=== PATIENT | male | born 1985 | race Caucasian/White ===

== ENCOUNTER 2018-02-25 01:28 | Emergency (ER) | payer MEDICAID ==
[~2018-02-25] VITALS: Ht 188 cm; Wt 100.0 kg
[2018-02-25 01:49] VITALS: Ht 188 cm; Wt 100.0 kg
[2018-02-25 02:29] LABS: BASOPHILS 0.1 % (0-2); EOSINOPHILS 0.1 % (0-7); HEMATOCRIT 43.5 % (42.0-54.0); HEMOGLOBIN 15.1 g/dL (13.5-17.5); IMMATURE GRANULOCYTES 0.3 % (0-5); LYMPHOCYTES 7.1 % (15-50); MCH 29.3 pg (26.0-34.0); MCHC 34.7 g/dL (31.0-37.0); MCV 84.3 fL (80.0-100.0); MEAN PLATELET VOLUME 11.3 fL (7.4-10.4); MONOCYTES 8.4 % (2-11); RBC 5.16 10x6/uL (4.20-6.10); RDW 12.9 % (11.5-14.5); WBC 14.6 10x3/uL (4.8-10.8)
[2018-02-25 02:31] LABS: PLATELET COUNT 189 10x3/uL (130-400)
[2018-02-25 02:43] LABS: ALBUMIN 4.2 g/dL (3.4-5.0); ALKALINE PHOSPHATASE 69 U/L (46-116); ALT (SGPT) 24 U/L (10-68); BILIRUBIN - TOTAL 0.67 mg/dL (0.2-1.3); CALC OSMOLALITY 283 mosm/kg (275-300); CARBON DIOXIDE 27.8 mmol/L (21.0-32.0); CHLORIDE - SERUM 105 mmol/L (98-107); GLUCOSE 134 mg/dL (74-106); PROTEIN - SERUM 7.3 g/dL (6.4-8.2); SODIUM 142 mmol/L (136-145); UREA NITROGEN 11 mg/dL (7-18); eGFR NON AFRICAN AMERICAN > 90 mL/min (90-120)
[2018-02-25 02:44] LABS: POTASSIUM - SERUM 2.9 mmol/L (3.5-5.1)
[2018-02-25 02:56] LABS: APPEARANCE CLEAR (CLEAR); BILIRUBIN 1+ (NEGATIVE); COLOR DK YELLOW (YELLOW); GLUCOSE NEGATIVE (NEGATIVE); KETONE NEGATIVE (NEGATIVE); NITRITE NEGATIVE (NEGATIVE); PROTEIN NEGATIVE (NEGATIVE); UROBILINOGEN NORMAL (NORMAL)
[2018-02-25 03:11] LABS: UDS - AMPHET POSITIVE QUAL (NEGATIVE); UDS - BARB NEGATIVE QUAL (NEGATIVE); UDS - BENZO NEGATIVE QUAL (NEGATIVE); UDS - COCAINE NEGATIVE QUAL (NEGATIVE); UDS - OPIATE NEGATIVE QUAL (NEGATIVE); UDS - PCP NEGATIVE QUAL (NEGATIVE); UDS - THC POSITIVE QUAL (NEGATIVE)
[2018-03-01 10:21] VITALS: BP 128/078
== END 2018-02-25 06:40 | disposition home or self-care (01) ==
LOC: D.ER 01:28
PROVIDERS: Family Medicine
DX: F15.10 Other stimulant abuse, uncomplicated (principal); E87.6 Hypokalemia; F17.200 Nicotine dependence, unspecified, uncomplicated

== ENCOUNTER 2018-02-25 20:35 | Emergency (ER) | payer MEDICAID ==
[~2018-02-25] VITALS: Ht 188 cm; Wt 109.1 kg
[2018-02-25 20:44] VITALS: Ht 188 cm; Wt 109.1 kg
[2018-02-25 21:31] LABS: BASOPHILS 0.3 % (0-2); EOSINOPHILS 0.8 % (0-7); HEMATOCRIT 42.4 % (42.0-54.0); HEMOGLOBIN 14.3 g/dL (13.5-17.5); IMMATURE GRANULOCYTES 0.2 % (0-5); LYMPHOCYTES 18.2 % (15-50); MCH 28.8 pg (26.0-34.0); MCHC 33.7 g/dL (31.0-37.0); MCV 85.3 fL (80.0-100.0); MEAN PLATELET VOLUME 11.3 fL (7.4-10.4); MONOCYTES 10.5 % (2-11); PLATELET COUNT 181 10x3/uL (130-400); RBC 4.97 10x6/uL (4.20-6.10); RDW 13.3 % (11.5-14.5)
[2018-02-25 21:32] LABS: WBC 10.5 10x3/uL (4.8-10.8)
[2018-02-25 21:34] LABS: APPEARANCE CLEAR (CLEAR); BILIRUBIN NEGATIVE (NEGATIVE); COLOR YELLOW (YELLOW); GLUCOSE NEGATIVE (NEGATIVE); KETONE NEGATIVE (NEGATIVE); NITRITE NEGATIVE (NEGATIVE); PROTEIN NEGATIVE (NEGATIVE); UROBILINOGEN NORMAL (NORMAL)
[2018-02-25 21:35] LABS: BACTERIA FEW /hpf (NONE SEEN); WHITE CELLS - URINE OCC /hpf (0-5)
[2018-02-25 21:39] LABS: UDS - AMPHET NEGATIVE QUAL (NEGATIVE); UDS - BARB NEGATIVE QUAL (NEGATIVE); UDS - BENZO NEGATIVE QUAL (NEGATIVE); UDS - COCAINE NEGATIVE QUAL (NEGATIVE); UDS - OPIATE NEGATIVE QUAL (NEGATIVE); UDS - PCP NEGATIVE QUAL (NEGATIVE); UDS - THC POSITIVE QUAL (NEGATIVE)
[2018-02-25 21:47] LABS: ALBUMIN 3.8 g/dL (3.4-5.0); ALKALINE PHOSPHATASE 65 U/L (46-116); ALT (SGPT) 22 U/L (10-68); BILIRUBIN - TOTAL 0.51 mg/dL (0.2-1.3); CALCIUM 8.9 mg/dL (8.5-10.1); CARBON DIOXIDE 28.2 mmol/L (21.0-32.0); CHLORIDE - SERUM 105 mmol/L (98-107); CREATININE - SERUM 0.9 mg/dL (0.6-1.3); GLUCOSE 91 mg/dL (74-106); SODIUM 142 mmol/L (136-145); eGFR NON AFRICAN AMERICAN > 90 mL/min (90-120)
[2018-02-25 21:49] LABS: CALC OSMOLALITY 280 mosm/kg (275-300); POTASSIUM - SERUM 3.4 mmol/L (3.5-5.1); UREA NITROGEN 8 mg/dL (7-18)
[2018-02-26 01:50] VITALS: BP 109/68
== END 2018-02-25 23:49 | disposition home or self-care (01) ==
LOC: D.ER 20:35
PROVIDERS: Family Medicine
DX: F15.93 Other stimulant use, unspecified with withdrawal (principal)

== ENCOUNTER 2018-03-01 11:09 | Emergency (ER) | payer MEDICAID ==
[~2018-03-01] VITALS: Ht 188 cm; Wt 105.0 kg
[2018-03-01 11:26] VITALS: BP 127/72; Ht 188 cm; Wt 105.0 kg
[2018-03-01] MEDS ORDERED: VIBRAMYCIN 100100 MG PO (13:02)
[2018-03-01] MEDS ORDERED: PROAIR HFA8.5 GM INH (13:04)
[2018-03-01] MEDS ORDERED: PHENERGAN DM SYR5 ML PO (13:04)
[2018-03-03 22:11] LABS: CHLAMYDIA TRACHOMATIS, NAA Positive (Negative)
== END 2018-03-01 14:00 | disposition home or self-care (01) ==
LOC: D.ER 11:09
PROVIDERS: Family Medicine
DX: Z72.51 High risk heterosexual behavior (principal); J40 Bronchitis, not specified as acute or chronic; L05.91 Pilonidal cyst without abscess; J06.9 Acute upper respiratory infection, unspecified; R09.89 Other specified symptoms and signs involving the circulatory and respiratory systems; J02.9 Acute pharyngitis, unspecified; R05 Cough

== ENCOUNTER 2018-03-04 17:06 | Emergency (ER) | payer MEDICAID ==
[~2018-03-04] VITALS: Ht 188 cm; Wt 104.5 kg
[~2018-03-04 17:06] MED LIST: PHENERGAN DM SYR5 ML PO; PROAIR HFA8.5 GM INH; VIBRAMYCIN 100100 MG PO
[2018-03-04 17:16] VITALS: Ht 188 cm; Wt 104.5 kg
[2018-03-04 19:59] VITALS: BP 125/74
== END 2018-03-04 19:59 | disposition home or self-care (01) ==
LOC: D.ER 17:06
DX: A64 Unspecified sexually transmitted disease (principal); F17.200 Nicotine dependence, unspecified, uncomplicated

== ENCOUNTER 2020-02-26 18:01 | Emergency (ER) | payer OTHER ==
[2018-03-04 17:16] VITALS: BMI 29.6
[2020-02-26 19:00] LABS: BASOPHILS 0.4 % (0-2); EOSINOPHILS 0.7 % (0-7); HEMATOCRIT 46.3 % (42.0-54.0); HEMOGLOBIN 15.7 g/dL (13.5-17.5); IMMATURE GRANULOCYTES 0.5 % (0-5); MCH 29.2 pg (26.0-34.0); MCHC 33.9 g/dL (31.0-37.0); MCV 86.1 fL (80.0-100.0); MEAN PLATELET VOLUME 10.7 fL (7.4-10.4); MONOCYTES 7.2 % (2-11); NEUTROPHILS 62.2 % (40-80); RBC 5.38 10x6/uL (4.20-6.10); RDW 13.1 % (11.5-14.5); WBC 10.7 10x3/uL (4.8-10.8)
[2020-02-26 19:01] LABS: PLATELET COUNT 258 10x3/uL (130-400)
[2020-02-26 19:11] LABS: CALC OSMOLALITY 274 mosm/kg (275-300); CALCIUM 8.9 mg/dL (8.5-10.1); CARBON DIOXIDE 28.5 mmol/L (21.0-32.0); CHLORIDE - SERUM 102 mmol/L (98-107); GLUCOSE 88 mg/dL (74-106); POTASSIUM - SERUM 3.8 mmol/L (3.5-5.1); SODIUM 138 mmol/L (136-145); UREA NITROGEN 12 mg/dL (7-18); eGFR NON AFRICAN AMERICAN > 90 mL/min (90-120)
[2020-02-26 19:17] LABS: ALBUMIN 4.4 g/dL (3.4-5.0); ALKALINE PHOSPHATASE 78 U/L (30-120); ALT (SGPT) 42 U/L (10-68); BILIRUBIN - TOTAL 0.29 mg/dL (0.2-1.3); PROTEIN - SERUM 7.6 g/dL (6.4-8.2)
[2020-02-27] MEDS ORDERED: PREDNISONE50 MG PO (11:14)
[2020-02-27] MEDS ORDERED: CLEOCIN HCL300 MG PO (11:47)
[2020-02-27] MEDS ORDERED: KEFLEX500 MG PO (11:47)
== END 2020-02-26 18:50 | disposition left against medical advice (07) ==
LOC: D.ER 18:01
PROVIDERS: Family Medicine
DX: R06.02 Shortness of breath (principal); Z53.29 Procedure and treatment not carried out because of patient's decision for other reasons

== ENCOUNTER 2020-02-27 10:26 | Emergency (ER) | payer OTHER ==
[~2020-02-27] VITALS: Ht 188 cm; Wt 120.5 kg
[2020-02-27 10:38] VITALS: BP 127/83; Ht 188 cm; Wt 120.5 kg
[2020-02-27 11:06] LABS: BILIRUBIN NEGATIVE (NEGATIVE); GLUCOSE NEGATIVE (NEGATIVE); KETONE NEGATIVE (NEGATIVE); NITRITE NEGATIVE (NEGATIVE); SPECIFIC GRAVITY 1.005 (1.005-1.020); UROBILINOGEN NORMAL (NORMAL)
[2020-02-27] MEDS ORDERED: PREDNISONE50 MG PO (11:14)
[2020-02-27] MEDS ORDERED: CLEOCIN HCL300 MG PO (11:47)
[2020-02-27] MEDS ORDERED: KEFLEX500 MG PO (11:47)
== END 2020-02-27 12:09 | disposition home or self-care (01) ==
LOC: D.ER 10:26
PROVIDERS: Family Medicine
DX: Z20.2 Contact with and (suspected) exposure to infections with a predominantly sexual mode of transmission (principal); L25.9 Unspecified contact dermatitis, unspecified cause; L05.91 Pilonidal cyst without abscess; L23.7 Allergic contact dermatitis due to plants, except food; M25.561 Pain in right knee

== ENCOUNTER → 2020-02-29 08:03 | Outpatient (CLI) | payer OTHER ==
[2020-02-27 10:38] VITALS: BMI 34.1
[~2020-02-29 08:03] MED LIST changes: +CLEOCIN HCL300 MG PO; +KEFLEX500 MG PO; +PREDNISONE50 MG PO
== END | disposition home or self-care (01) ==
LOC: D.MRI 01-30 10:30
PROVIDERS: ATTEND Orthopaedic Surgery
DX: S83.271A Complex tear of lateral meniscus, current injury, right knee, initial encounter (principal)

== ENCOUNTER 2020-03-08 12:22 | Emergency (ER) | payer OTHER ==
[~2020-03-08] VITALS: Ht 198.1 cm; Wt 120.5 kg
[2020-03-08 12:25] VITALS: Ht 198.1 cm; Wt 120.5 kg
[2020-03-08 12:49] VITALS: BP 131/81
[2020-03-08] MEDS ORDERED: AUGMENTIN 875-11 TAB PO (15:55)
== END 2020-03-08 13:29 | disposition left against medical advice (07) ==
LOC: D.ER 12:22
DX: R51 Headache (principal); Z53.29 Procedure and treatment not carried out because of patient's decision for other reasons

== ENCOUNTER 2020-03-08 13:48 | Emergency (ER) | payer OTHER ==
[2020-03-08 13:52] VITALS: Ht 198.1 cm
[2020-03-08] MEDS ORDERED: AUGMENTIN 875-11 TAB PO (15:55)
[2020-03-08 16:45] LABS: BASOPHILS 0.4 % (0-2); EOSINOPHILS 1.1 % (0-7); HEMATOCRIT 48.8 % (42.0-54.0); HEMOGLOBIN 16.5 g/dL (13.5-17.5); IMMATURE GRANULOCYTES 0.8 % (0-5); LYMPHOCYTES 28.9 % (15-50); MCH 28.9 pg (26.0-34.0); MCHC 33.8 g/dL (31.0-37.0); MCV 85.6 fL (80.0-100.0); MEAN PLATELET VOLUME 10.3 fL (7.4-10.4); NEUTROPHILS 61.8 % (40-80); PLATELET COUNT 269 10x3/uL (130-400); RDW 13.2 % (11.5-14.5); WBC 9.8 10x3/uL (4.8-10.8)
[2020-03-08 16:49] LABS: CALC OSMOLALITY 268 mosm/kg (275-300); CALCIUM 9.5 mg/dL (8.5-10.1); CARBON DIOXIDE 25.8 mmol/L (21.0-32.0); CHLORIDE - SERUM 100 mmol/L (98-107); GLUCOSE 98 mg/dL (74-106); POTASSIUM - SERUM 3.9 mmol/L (3.5-5.1); SODIUM 135 mmol/L (136-145); UREA NITROGEN 11 mg/dL (7-18); eGFR NON AFRICAN AMERICAN > 90 mL/min (90-120)
[2020-03-08 16:56] LABS: ALBUMIN 4.6 g/dL (3.4-5.0); ALKALINE PHOSPHATASE 93 U/L (30-120); ALT (SGPT) 75 U/L (10-68); BILIRUBIN - TOTAL 0.61 mg/dL (0.2-1.3); PROTEIN - SERUM 8.2 g/dL (6.4-8.2)
[2020-03-08 17:46] VITALS: BP 128/64
== END 2020-03-08 17:47 | disposition home or self-care (01) ==
LOC: D.ER 13:48
PROVIDERS: Family Medicine
DX: J32.9 Chronic sinusitis, unspecified (principal); R51 Headache

== ENCOUNTER 2020-03-09 11:32 | Emergency (ER) | payer OTHER ==
[~2020-03-09 11:32] MED LIST changes: +AUGMENTIN 875-11 TAB PO
[2020-03-09 11:34] VITALS: BP 136/96; Ht 198.1 cm
[2020-03-09 12:15] LABS: BASOPHILS 0.3 % (0-2); EOSINOPHILS 0.2 % (0-7); HEMATOCRIT 47.9 % (42.0-54.0); HEMOGLOBIN 16.4 g/dL (13.5-17.5); IMMATURE GRANULOCYTES 0.7 % (0-5); MCHC 34.2 g/dL (31.0-37.0); MCV 84.6 fL (80.0-100.0); MEAN PLATELET VOLUME 10.2 fL (7.4-10.4); MONOCYTES 7.7 % (2-11); NEUTROPHILS 71.1 % (40-80); PLATELET COUNT 267 10x3/uL (130-400); RBC 5.66 10x6/uL (4.20-6.10); WBC 9.9 10x3/uL (4.8-10.8)
[2020-03-09 12:18] LABS: CALC OSMOLALITY 271 mosm/kg (275-300); CARBON DIOXIDE 23.2 mmol/L (21.0-32.0); CHLORIDE - SERUM 101 mmol/L (98-107); GLUCOSE 115 mg/dL (74-106); POTASSIUM - SERUM 3.4 mmol/L (3.5-5.1); SODIUM 136 mmol/L (136-145); UREA NITROGEN 10 mg/dL (7-18); eGFR NON AFRICAN AMERICAN > 90 mL/min (90-120)
[2020-03-09 12:24] LABS: ALBUMIN 4.5 g/dL (3.4-5.0); ALKALINE PHOSPHATASE 88 U/L (30-120); ALT (SGPT) 73 U/L (10-68); BILIRUBIN - TOTAL 0.44 mg/dL (0.2-1.3); MAGNESIUM - SERUM 1.8 mg/dL (1.8-2.4); PROTEIN - SERUM 7.7 g/dL (6.4-8.2)
[2020-03-09 12:45] LABS: BILIRUBIN NEGATIVE (NEGATIVE); GLUCOSE NEGATIVE (NEGATIVE); KETONE SMALL mg/dL (NEGATIVE); NITRITE NEGATIVE (NEGATIVE); SPECIFIC GRAVITY 1.015 (1.005-1.020); UROBILINOGEN NORMAL (NORMAL)
[2020-03-09 12:52] LABS: UDS - AMPHET NEGATIVE QUAL (NEGATIVE); UDS - BARB NEGATIVE QUAL (NEGATIVE); UDS - BENZO NEGATIVE QUAL (NEGATIVE); UDS - COCAINE NEGATIVE QUAL (NEGATIVE); UDS - OPIATE NEGATIVE QUAL (NEGATIVE); UDS - PCP NEGATIVE QUAL (NEGATIVE); UDS - THC POSITIVE QUAL (NEGATIVE)
--- NOTE | 2020-03-09 13:20 | NUR ---
PATIENT IS AT LOW RISK PER DR. BARBER. RESOURCES GIVEN TO PATIENT AND HE VERBALIZES UNDERSTANDING.
[2020-03-13] MEDS ORDERED: BENADRYL50 MG PO (08:54)
[2020-03-13] MEDS ORDERED: CELEXA20 MG PO (09:11)
[2020-03-13] MEDS ORDERED: INVEGA 3 MG ER T3 MG PO ×2 (09:11→09:15)
[2020-03-13] MEDS ORDERED: TRAZODONE HCL150 MG PO (09:12)
[2020-03-13] MEDS ORDERED: TOFRANIL25 MG PO (09:14)
[2020-03-13] MEDS ORDERED: MAXITROL EYE DRO5 ML EACH EYE (13:39)
[2020-03-13] MEDS ORDERED: BC POWDER PO (13:41)
[2020-03-13] MEDS ORDERED: AUGMENTIN 875-11 TAB PO (13:42)
== END 2020-03-09 14:53 | disposition home or self-care (01) ==
LOC: D.ER 11:32
PROVIDERS: Family Medicine
DX: R46.89 Other symptoms and signs involving appearance and behavior (principal); Z76.5 Malingerer [conscious simulation]; Z91.14 Patient's other noncompliance with medication regimen; R45.851 Suicidal ideations

== ENCOUNTER 2020-03-14 07:44 | Day surgery (SDC) | payer OTHER ==
[~2020-03-14] VITALS: Ht 198.1 cm; Wt 120.2 kg
[~2020-03-14 07:44] MED LIST changes: +BC POWDER PO; +BENADRYL50 MG PO; +CELEXA20 MG PO; +INVEGA 3 MG ER T3 MG PO; +MAXITROL EYE DRO5 ML EACH EYE; +TOFRANIL25 MG PO; +TRAZODONE HCL150 MG PO
[2020-03-14 08:02] VITALS: BP 137/88; Ht 198.1 cm; Wt 120.2 kg
[2020-03-14] MEDS ORDERED: HYDROCODON-ACE1 EA10 PO (10:43)
--- NOTE | 2020-03-14 12:03 | NUR ---
1200 PT AWAKE BUT DROWSEY AND NOT COOPERATIVE. LEG ELEVATED WITH PILLOW. INFORMED PT WILL BE HERE FOR 1 HR. NO ONE AT [facility]. PAIN /. WIGGLES TOES AND HAS GOOD SENSATION,
--- NOTE | 2020-03-14 12:51 | NUR ---
1215 PT ON PHONE WITH PULSE OX OFF. TOLERATING ICE CREAM AND LIQUIDS. 1230 PT FOUND STANDING AT FOOT OF BED WITH IV STRETCHED OUT AND DIDNT CALL NURSE STATION BEFORE GETTING UP. PT STATED HE DOESNT HAVE A RIDE HOME. DISH UP PERSON ASKED IF THAT WAS POLICY AND STATED YES PT CAN GO HOME IN [place] AFTER GENERAL SURGERY. PT IS STABLE AND SISTER WHO WORKS IN SURGERY STATED SHE GETS OFF AT 3PM. PT REFUSED TO STAY. INSTRUCTIONS GIVEN AND RX. PT STATED HE CANT TAKE ANY NARCOTICS BECAUSE HE WILL BE TAKING A DRUG TEST FOR THE [employer]. PT GETTING FREQUENT PHONE CALLS AND REQUESTED A LUNCH TRAY. 1300 PT REMOVED ID BRACLET AND GAVE IT TO ME. INSTRUCTED PT TO CALL WHEN HE IS FINISH EATING AND [place] HERE IN FRONT OF HOSPITAL
--- NOTE | 2020-03-16 09:12 | OP ---
PATIENT NAME: ANGEL PELAEZ MEDICAL RECORD: [id number] :89 LOCATION:[facility] ADMISSION DATE: SURGEON: YULIANA UMAÑA MD DATE OF OPERATION: 03/14/2020 PREOPERATIVE DIAGNOSIS: Complex tear of the posterior horn of the lateral meniscus. POSTOPERATIVE DIAGNOSIS: Bucket-handle tear of the right lateral meniscus. PROCEDURE: Arthroscopic partial lateral meniscectomy. SURGEON: Yuliana Umaña MD ANESTHESIA: General. INTRAOPERATIVE COMPLICATIONS: None. SUMMARY OF PATHOLOGIC FINDINGS: There was a very minimal amount of chondromalacia in the lateral compartment consistent with a subacute bucket-handle tear, but upon entering the patient had a pristine medial compartment and patellofemoral compartment, but the bucket handle was noticed and reduced and was very easily to re-dislocate. The bucket was reduced back to its place. It was evaluated and found to be in a nonrepairable situation primarily emanating from the popliteal fossa and a subtotal lateral meniscectomy was performed. OPERATIVE SUMMARY IN DETAIL: After obtaining the appropriate preoperative orthopedic surgery consent as well as anesthetic consultation, evaluation and clearance, the patient was brought to the operating room and placed on the operating table placed in supine position. After general laryngeal mask airway was administered, tourniquet was placed on the proximal aspect of the patient's right lower extremity. Right lower extremity was then prepped and draped in routine sterile fashion. The leg was elevated and exsanguinated. Tourniquet was inflated to 350 mmHg. At this point, appropriate timeout was taken and agreed upon given the patient's unique identifiers. Routine inferolateral portal was established followed by superomedial portal and inferomedial portal. Diagnostic arthroscopy did reveal the above findings. After reducing the bucket-handle tear, a combination of meniscotomes, arthroscopic scissors as well as a large arthroscopic resector was utilized to debride the large bucket-handle tear. There was residual lateral meniscus. None; however, crossing the front of the popliteal fossa. There was some still connected to the root of the posterior capsule as well as laterally to the posterior capsule. This was checked and left in situ. The knee was insufflated with 30 cc of 0.25% Marcaine with epinephrine and 40 mg Depo-Medrol. Arthroscopy portals were closed in routine interrupted fashion using 4-0 Prolene. Sterile dressing was applied. The patient was awakened and taken to recovery room in stable condition. All final needle and sponge counts were correct. TRANSINT:[id number] Voice Confirmation ID: [id number] DOCUMENT ID: [id number] OPERATIVE REPORT [id number] ANGEL PELAEZ MD, YULIANA MCCABE at 0912 CC: [id number] DICTATION DATE: 03/15/20 1137 [facility] [place]: 03/15/20 2150 [facility] 03/14/20 [place] [id number]
== END 2020-03-14 13:49 | disposition home or self-care (01) ==
LOC: D.OPS 07:44
PROVIDERS: ATTEND Orthopaedic Surgery
DX: S83.251A Bucket-handle tear of lateral meniscus, current injury, right knee, initial encounter (principal); X58.XXXA Exposure to other specified factors, initial encounter; M25.561 Pain in right knee